=== PATIENT | male | born 1965 | race Caucasian/White ===

== ENCOUNTER → 2020-10-29 17:46 | Outpatient (CLI) | payer OTHER, SELFPAY ==
--- NOTE | 2020-10-29 17:50 | CT_ITS ---
STUDY: CT FACIAL BONES WITHOUT CONTRAST REASON FOR EXAM: Male, 55 years old. CHRONIC MAXILLARY SINUSITIS -- PADILLA PROTOCOL RADIATION DOSAGE (If Supplied By Facility): CTDIvol = ( 33.06 ) mGy, DLP = ( 871.04 ) mGycm TECHNIQUE: The patient was scanned in a multi detector CT scanner. Sagittal and coronal images were reconstructed. Individualized dose optimization techniques were used for this CT. COMPARISON: None. FINDINGS: Normal soft tissue structures. Normal orbital anderson and orbital contents. Normal nasal bones and anterior nasal spine. Normal facial bones. There is no demonstrated fracture. There is circumferential mucosal thickening of the left maxillary sinus extending to the ostiomeatal unit which is mildly widened as compared to the right side. There is also mucosal thickening in the left more than right ethmoid air cells. No lázaro bony destruction. Slight mucosal thickening of the inferior left frontal sinus. The sphenoid sinuses are unremarkable. There are degenerative changes of the cervical spine with bilateral foraminal stenosis, partially visualized. CT/Sinus/Facial Bone IMPRESSION: 1. No lázaro bony destruction. 2. Left dominant paranasal sinus disease with [facility] obstructive pattern. Electronically Signed: Leonidas Will MD ([place]) at 12:05 EDT , Service support ,
== END ==
PROVIDERS: PCP Family Medicine; Referring Provider Otolaryngology; Visit Provider Otolaryngology
DX: J32.0 Chronic maxillary sinusitis (principal)
CPT/HCPCS: 70486

== ENCOUNTER 2020-11-05 05:58 | Day surgery (SDC) | payer OTHER, SELFPAY ==
--- NOTE | 2020-11-03 15:59 | EKG12_ITS ---
Test Reason : PRE-OP Blood Pressure : / mmHG Vent. Rate : 075 BPM Atrial Rate : 075 BPM P-R Int : 148 ms QRS Dur : 100 ms QT Int : 414 ms P-R-T Axes : 021 012 044 degrees QTc Int : 462 ms Sinus rhythm with Premature atrial complexes Low voltage QRS Incomplete right bundle branch block Confirmed by TOSHA RUIZ, ALVARO ([id number]), city editor ERWIN ANGUIANO ([id number]) on 11/09/2020 7:22:32 AM Referred By: Jace Esteban Confirmed By:ALVARO GIVENS MD
[2020-11-03 16:46] LABS: Hematocrit 39.6 % (40-54); Hemoglobin 12.7 g/dL (13.0-16.5); Mean Corp Hgb Conc 32.1 g/dL (32-36); Mean Corpuscular Hgb 31.4 pg (27.0-32.0); Mean Platelet Vol. 9.9 fl (6.2-12.0); Platelet Count 310 K/mm3 (150-450); RBC Distribution Width CV 13.4 % (11.6-14.6); RBC Distribution Width SD 48.8 fl (35.1-43.9); Red Blood Count 4.04 M/mm3 (4.6-6.2); White Blood Count 10.4 K/mm3 (4.4-11.0)
--- NOTE | 2020-11-05 | NAPO_PTH ---
PATIENT: JOANNA GREGORY LOC: [facility] [place] U#:[id number] AGE/SX: 55/M ROOM: RE11/05/[address]: Dr. Jace Esteban MD : [id number] BED: DIS: 11/05/2020 SPEC #: [id number] RECD: 11/05/20 08:57 STATUS: JERE REJames #: [id number] ARIC: 11/05/20 00:[address]: Jace Esteban DEPT: SURGICAL PATHOLOGY RECD BY: Zaina Jordan ENTERED: 11/05/20 09:28 SP TYPE: DARINEL POLYPS OTHR DR: Dr. Calvin Dunham MD Tissues: NASAL POLYP Procedures: Decalcification bone/plaque Frozen Section (charge) Surgery Specimen Level IV HEADER OPERATION: Endoscopic sinus/nasal maxillary antrostomy, total ethmoidectomy PRE-OP DIAGNOSIS: Chronic maxillary sinus; chronic ethmoidal sinusitis TISSUE SUBMITTED: A - Contents of left maxillary sinus removal, FS, B - Right sinus contents, C - Left sinus contents FROZEN SECTION DIAGNOSIS A. Left maxillary sinus, biopsy: Fragments of inflamed benign mucosal polyps. OZZY:claire 11/05/2020 MICROSCOPIC DIAGNOSIS A. Left maxillary sinus, biopsy: Polypoid fragments of benign respiratory mucosa with moderate to marked chronic inflammation, consistent with fragments of inflamed benign mucosal polyps. B. Right sinus contents: Fragments of respiratory mucosa with chronic inflammation and bone. C. Left sinus contents: Fragments of respiratory mucosa with moderate to marked chronic inflammation and bone. OZZY:claire 11/10/2020 MICROSCOPIC DESCRIPTION Slides are reviewed. GROSS DESCRIPTION A - Received fresh for frozen section diagnosis labeled with the patient's name is a specimen designated left maxillary sinus. The specimen consists of multiple polypoid pieces of leong soft tissue that in aggregate measure 5 x 1 x 0.5 cm. The entire specimen is submitted for frozen section diagnosis in one cassette. / OZZY:claire 11/05/20 B - Received in fixative is one container labeled with the patient's name and designated right sinus contents. The specimen consists of multiple fragments of hemorrhagic soft tissue mixed with possible fragments of bone that in aggregate measure 5 x 3 x 0.3 cm. The specimen is totally submitted in two cassettes after decalcification. C - Received in fixative is one container labeled with the patient's name and designated left sinus contents. The specimen consists of multiple fragments of leong hemorrhagic soft tissue mixed with possible fragments of bone that in aggregate measure 7.5 x 3 x 0.3 cm. The specimen is totally submitted in three cassettes after short decalcification. / OZZY:claire 11/08/20 TC:3 CPT: 48535 x3, 57248, 86418 x2
[2020-11-05 06:25] VITALS: BP 110/68; PULSE 61; RESP 16; TEMP 36.4; O2SAT 98; BMI 33.2
[2020-11-05] MEDS: Lactated Ringers 1,000 ML 100 ML IV (06:43)
--- NOTE | 2020-11-05 07:35 | PCM.OPRPT ---
Problems Associated Problem List Diagnoses (1) Chronic maxillary sinusitis: (2) Chronic ethmoidal sinusitis: Report of Operation Date of Procedure: 11/05/20 Pre-Operative Diagnosis: Chronic maxillary and ethmoid sinusitis Post-Operative Diagnosis: Same Surgery/Procedure Performed:: Bilateral endoscopic maxillary antrostomies with removal of tissue on left, total ethmoidectomies Description of Surgical Findings:: Edgar is a 55-year-old male presenting with chronic sinusitis failing relief with antibiotic therapy and CT scan confirming chronic sinusitis most significantly within the left maxillary sinus. The above procedures offered hopes alleviation of these complaints and the patient was eager to proceed. The risks, alternatives, potential complications, and benefits were discussed at length and any questions answered to the patient and/or caregiver's satisfaction. Witnessed informed consent was obtained in the office, and the patient and/or caregiver was agreeable to proceed. Procedure went as follows: The patient was identified in the preoperative holding and brought to the operating room, was placed under general anesthesia and intubated. When appropriate anesthesia was obtained, the navigational head gear was placed and confirmed to be operational in accordance with the pit manager's directions. Pledgets soaked in a 50-50 mixture of oxymetazoline and 4% topical lidocaine were placed to decongest the nasal mucosa. These were then removed and beginning on the left side using a 0? endoscope the nasal cavity examined. The insertion of the middle turbinate and uncinate process was then injected with 1% lidocaine with 100,000 epinephrine for a total of 2 mL, and a similar injection was then carried on the contralateral side. Upon returning to the left side, the middle turbinate was medialized with a Marnie elevator. This allowed examination of the maxillary sinus ostia which was then probed with a double ball seeker. The uncinate process was then outfractured with a J curette and transected with a backbiting forceps. There is noted to be abundant friable purple-pink tissue with pockets of purulence. The uncinate process was then removed with the microdebrider creating a wide maxillary antrostomy. Within the sinus cavity there is noted to be additional pink-purple soft tissues and this was then removed serially with a series of grasping instruments with a portion sent for culture and other for pathologic evaluation for possible neoplasia. The ethmoid bulla was then entered and a total ethmoidectomy was then carried out working posteriorly to anterior. Any polyps, scar, and mucous secretions were removed. Extensive polypoid inflammation was noted. Pledgets soaked in oxymetazoline were then placed for hemostasis and attention turned to the contralateral side. Similar procedure and findings were then carried out where less extensive disease was encountered but again extensive inflammatory changes of the sinus lining was encountered. Pledgets were again placed for hemostasis and upon removal Floseal hemostatic agent was then applied. An NG tube was then placed to decompress the stomach and the patient returned to anesthesia, revived and extubated having tolerated the procedure well. pants presser automatic: None Type of Anesthesia: General Anesthesiologist: Dixon Severino Special Medications: none Specimen's removed: left maxillary sinus contents Drains: none Estimated Blood Loss (mL): 200 mL Fluids Replaced: 1000 mL Admit VTE Documentation VTE Mechan Device Prophylaxis: SCD's VTE Pharm Prophylaxis ordered?: No Reason prophylaxis not ordered:: Procedure Not Indicated
[2020-11-05] MEDS: Lidocaine 1% /Epi 1:100 (20ml) 20 ML Vial (08:09)
[2020-11-05] MEDS: Lidocaine 4% 50 ML Bottle (08:11)
[2020-11-05] MEDS: Oxymetazoline 0.05% 1 SPRAY SPRAY.BTL 15 SPRAY (08:11)
--- NOTE | 2020-11-05 09:11 | PCM.DC ---
Discharge Instructions Diet Discharge Diet: No restrictions Activity Discharge Activity: Return to Normal Activity and May not drive while taking narcotic pain medications. Dressing / Incision Call your doctor if your incision/area has: Sudden Increased Bleeding Call your doctor if you observe: Fever of 101 or Higher and Uncontrolled pain Follow Up Care Please Follow Up With: Jace Esteban MD When: 1 week Test Results: Test results from this visit will be discussed in further detail at your follow-up appointment, if applicable. Discharge Plan Admission Primary Reason for Your Visit: chronic sinusitis Attending Provider: Jace Esteban Primary Care Provider: Calvin Dunham Discharge Orders/Prescriptions Prescriptions: New oxycodone-acetaminophen [Endocet] 5-325 mg tablet 1 tab PO Q6H PRN (Reason: pain) 5 Days Qty: 10 RF: 0 Continued ascorbic acid (vitamin C) [Vitamin C] 500 mg Tablet 500 mg PO BID RF: 0 ferrous sulfate 325 mg (65 mg iron) Tablet 325 mg PO BID RF: 0 zinc 50 mg Tablet 50 mg PO BID RF: 0 albuterol 90 mcg/actuation Aerosol 1 mcg INHALATION DAILY RF: 0 cholecalciferol (vitamin D3) [Vitamin D3] 50 mcg (2,000 unit) Capsule 50 mcg PO BID RF: 0 Probiotic and Acidophilus 300-250 million cell-mg Capsule 2 cap PO QHS RF: 0 Referrals / Follow Up: Calvin Dunham MD [Primary Care Provider] -
[2020-11-05 09:18] VITALS: BP 110/68; BP 115/78; PULSE 68; RESP 16; TEMP 36.2; O2SAT 97
[2020-11-05 09:30] VITALS: BP 110/68; BP 114/74; PULSE 68; RESP 16; O2SAT 94
[2020-11-05 09:45] VITALS: BP 110/68; BP 116/73; PULSE 65; RESP 16; O2SAT 95
[2020-11-05 09:59] VITALS: BP 110/68; BP 113/72; PULSE 57; RESP 16; TEMP 36.4; O2SAT 97
[2020-11-05 10:43] VITALS: BP 110/68; BP 117/62; PULSE 59; RESP 16; TEMP 36.3; O2SAT 95
== END 2020-11-05 10:45 ==
LOC: SDC 05:58 → AC 05:59
PROVIDERS: Anesthesiology; PCP Family Medicine; Referring Provider Otolaryngology; Visit Provider Otolaryngology
PROC: (CPT 31255; principal; 2020-11-05 07:00)
DX: J32.0 Chronic maxillary sinusitis (principal); J32.2 Chronic ethmoidal sinusitis; J33.8 Other polyp of sinus; Z20.822 Contact with and (suspected) exposure to COVID-19; J45.909 Unspecified asthma, uncomplicated; M19.90 Unspecified osteoarthritis, unspecified site; G47.30 Sleep apnea, unspecified; G25.81 Restless legs syndrome; Z79.899 Other long term (current) drug therapy
CPT/HCPCS: 00160; 31255; 31267; 36415; 85027; 87070; 87075; 87077; 87102; 87186; 87205; 87206; 87426; 88304; 88305; 88311; 88331; 93005; C9803; J7120; J2405

== ENCOUNTER → 2024-04-04 | Outpatient (CLI) | payer OTHER, SELFPAY ==
[2024-04-04 15:35] LABS: Hemoglobin A1c 5.9 % (3.8-5.6)
== END | disposition home or self-care (01) ==
PROVIDERS: PCP Family Medicine; Referring Provider Orthopaedic Surgery; Visit Provider Orthopaedic Surgery
DX: R73.09 Other abnormal glucose (principal)
CPT/HCPCS: 36415; 83036